=== PATIENT | male | born 2000 | race Caucasian/White ===

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

== ENCOUNTER 2020-08-23 23:52 | Emergency (ER) | payer OTHER ==
[2020-08-24 00:35] LABS: BASO # 0.04 (0.02-0.10); EOS # 0.13 (0.04-0.40); HEMOGLOBIN 13.9 g/dL (13.5-18.0); MEAN CELL VOLUME 90 fl (78-100); MEAN CORPUSCULAR HEMOGLOBIN 30 pg (27-31); MEAN CORPUSCULAR HGB CONC 33 g/dL (33-37); MEAN PLATELET VOLUME 9.2 fl (7.4-10.4); MONO # 0.91 (0.20-0.80); NEU # 8.48 (1.40-6.50); PLATELET COUNT 273 K/mm3 (130-400); RED BLOOD COUNT 4.68 M/mm3 (4.20-5.60); RED CELL DISTRIBUTION WIDTH 13.8 % (11.5-14.5); WHITE BLOOD COUNT 12.6 K/mm3 (4.8-10.8)
[2020-08-24 00:47] LABS: ALBUMIN 4.2 g/dL (3.5-5.0); POTASSIUM 3.7 mmol/L (3.5-5.1); SODIUM 141 mmol/L (136-145)
[2020-08-24 00:48] LABS: CALCIUM 8.9 mg/dL (8.3-10.5)
[2020-08-24 00:50] LABS: GLUCOSE 109 mg/dL (75-110); TOTAL PROTEIN 7.2 g/dL (6.4-8.3)
[2020-08-24 00:51] LABS: CARBON DIOXIDE 26 mmol/L (22-29); TOTAL BILIRUBIN 0.4 mg/dL (0.2-1.2)
[2020-08-24 00:55] LABS: AST-SGOT 34 U/L (5-34)
[2020-08-24 00:56] LABS: ALT/SGPT 37 U/L (0-55)
[2020-08-24 06:52] VITALS: BP 119/72
[2020-08-24] MEDS ORDERED: BACTRIM DS TAB1 EACH PO (07:34)
[2020-08-24] MEDS ORDERED: AUGMENTIN 875-1 EAC1 PO (07:34)
== END 2020-08-24 08:04 | disposition home or self-care (01) ==
LOC: ED 23:52
PROVIDERS: Nurse Practitioner
DX: L03.113 Cellulitis of right upper limb (principal); S61.031A Puncture wound without foreign body of right thumb without damage to nail, initial encounter; X58.XXXA Exposure to other specified factors, initial encounter; Y92.59 Other trade areas as the place of occurrence of the external cause; Y99.0 Civilian activity done for income or pay
CPT/HCPCS: J0696; J3010